=== PATIENT | female | born 1955 | race Caucasian/White ===

== ENCOUNTER → 2017-04-21 | Day surgery (SDC) | payer BC ==
[~2017-04-21] MED LIST: ASPIRIN81 M2 PO; BACTRIM DS TABL1 TA1 PO; CALCIUM500 M1 PO; FEMARA2.5 MG PO; KEFLEX500 M1 PO; MULTI VITAMIN1 EACH PO; NO MEDICATIONS; VIT D PO
--- NOTE | ~2017-04-21 | OR ---
Unit #: [id number] #: [id number] Patient: JEIMY YU [id number] [address] [place], [place] [address] [id number] O MR#: [id number] NAME: JEIMY YU. ROOM: Date of Procedure: 04/21/2017 Admission Date: 04/21/2017 Surgeon: Jake Vidal M.D. : 1955 Attending Physician: Jake Vidal M.D. Primary Care Physician: Vicente Kothari M.D. OPERATIVE REPORT PREOPERATIVE DIAGNOSIS Screening colonoscopy. POSTOPERATIVE DIAGNOSIS Screening colonoscopy. PROCEDURE PERFORMED Colonoscopy to terminal ileum. ANESTHESIA Monitored anesthesia care. FINDINGS The patient had normal colonoscopy to terminal ileum. SPECIMENS None. COMPLICATIONS None apparent. CONDITION The patient tolerated the procedure well. INDICATIONS FOR PROCEDURE The patient is a 61-year-old white female, who presents at this time for screening colonoscopy. Her last colonoscopy was 11 years ago. DESCRIPTION OF PROCEDURE After obtaining informed consent, the patient was brought to the endoscopy suite and after adequate monitored anesthesia care, had the colonoscope placed through the anus and advanced to the level of the cecum without difficulty with the lumen always in view. We were able to pass through the ileocecal valve into the terminal ileum, which was normal. The ileocecal valve was normal as was the cecum. The ascending colon was normal as was the hepatic flexure, transverse colon, splenic flexure, descending colon, sigmoid colon, and rectum. No diverticula were seen. On retroflexing in the rectum to the anorectal junction, there was no abnormality seen. The scope was removed without difficulty. The patient went from the endoscopy suite to recovery area in stable condition. RECOMMENDATIONS Unit #: [id number] #: [id number] Patient: JEIMY YU High-fiber diet, lots of liquids, tucks or wipes p.r.n. Follow up as needed. Dictated by... Tory Acuna/agustín TD: 04/21/2017 14:36 JOB #: [id number] CC: [facility] OPERATIVE REPORT Page 1 of 1 X Jake Vidal MD PROCEDURE OPERATIVE NOTE
== END | disposition home or self-care (01) ==
LOC: COPS 04-16 07:30
DX: Z12.11 Encounter for screening for malignant neoplasm of colon (principal); Z85.3 Personal history of malignant neoplasm of breast; Z90.710 Acquired absence of both cervix and uterus; Z98.51 Tubal ligation status

== ENCOUNTER → 2017-06-22 | Outpatient (CLI) | payer BC ==
--- NOTE | ~2017-06-22 | MY31 ---
[facility] RADIOLOGY TEXT RESULTS PATIENT: JEIMY YU LOCATION: [facility] : 55 UNIT #: [id number] AGE: [address]: Jake Vidal MD SEX: F ORDER DR: [id number] [address] [address] [id number] O MR#: [id number] Acc #: [id number] NAME: JEIMY YU : 1955 SEX: F STUDY DATE/TIME: 06/22/2017 8:49 UNIT: [facility] ROOM: STUDY DESCRIPTION: CR SCREEN ALEJANDRO UNI DIG - LEFT Attending Physician: Jake Vidal M.D. Referring Physician: Jake Vidal M.D. Ordering Physician: Jake Vidal M.D. Primary Care Physician: Vicente Kothari M.D. MEDICAL IMAGING REPORT This report is preliminary unless electronic signature is present. EXAM Unilateral left digital screening mammogram 06/22/2017 [facility] HISTORY 61-year-old woman status post right mastectomy 2005. Adjuvant chemotherapy. Personal and family history, cousin premenopausal. COMPARISON Mammograms date to 10/17/2007 with most recent 06/19/2016. FINDINGS Digital imaging of the left breast was completed utilizing screening protocol. Review includes FDA-approved CAD device. An additional true lateral view is provided. Breast parenchyma is partially fatty replaced with the subareolar duct prominence again noted. There is no interval occurring mass. There are no suspicious microcalcifications and no architectural deformity. IMPRESSION Stable benign unilateral left mammogram. Status post right mastectomy. Annual screening recommended. Patient's over the age of 40 are entered into a reminder system with target due date for the next mammogram. A result letter will be sent to the patient. BIRADS: 2 Benign findings. Dictated by... Ayush Cobb M.D. [facility] RADIOLOGY TEXT RESULTS PATIENT: JEIMY YU LOCATION: [facility] : 55 UNIT #: [id number] AGE: [address]: Jake Vidal MD SEX: F ORDER DR: THIS IS AN ELECTRONICALLY VERIFIED REPORT Ayush Cobb M.D. at 06/23/2017 8:24 AM JBB/yaneth TD: 06/22/2017 16:29 JOB #: [id number] MEDICAL IMAGING REPORT Page 1 of 1
== END | disposition home or self-care (01) ==
LOC: SMAM 08:12
DX: Z12.31 Encounter for screening mammogram for malignant neoplasm of breast (principal); Z85.3 Personal history of malignant neoplasm of breast; Z90.11 Acquired absence of right breast and nipple
CPT/HCPCS: G0202